=== PATIENT | female | born 1985 | race African-American/Black ===

== ENCOUNTER 2017-02-07 09:31 | Emergency (ER) | payer OTHER ==
[2017-02-07] MEDS ORDERED: DEXAMETHASONE 10 MG/ML VIAL PO STA (10:32)
--- NOTE | 2017-02-07 10:35 | ED Physician Documentation ---
PD HPI UPPER EXT INJURY - Stated complaint Stated Complaint: R ARM PX/NUMB - Chief complaint Chief Complaint: Ext Problem - History obtained from History obtained from: Patient, Family - History of Present Illness Location: Right, Elbow Type of injury: Other (jerking of the arms at [place]) Where injury occurred: [place] Timing - onset: How many days ago (2) Timing - duration: Days (2) Timing - details: Gradual onset, Still present Improved by: Rest, Immobilization Worsened by: Moving, Palpating Associated symptoms: Numbness. No: Weakness Contributing factors: No: Anticoagulated Similar symptoms before: Has not had sx before Recently seen: Not recently seen - Additonal information Additional information: 29-year-old female was at [employer] on evening when she was riding a tube that had a lot of bouncing around and she thinks she may have strained her elbow on this ride. She did not have immediate pain. Later that day she had some pain on the way home and when she woke the next morning she was not able to use her right arm. She is having a lot of problem with pain in the elbow and numbness on the fourth and fifth digits she has pain to flexion extension and supination pronation. Review of Systems Constitutional: denies: Fever Eyes: denies: Decreased vision Ears: denies: Ear pain Nose: denies: Congestion Respiratory: denies: Cough GI: denies: Abdominal Pain, Nausea, Vomiting : denies: Dysuria Skin: denies: Rash Musculoskeletal: reports: Extremity pain, Joint pain, Joint swelling. denies: Neck pain, Back pain Neurologic: reports: Numbness. denies: Generalized weakness, Focal weakness PD PAST MEDICAL HISTORY - Past Medical History Past Medical History: Yes Cardiovascular: Murmur, Other Endocrine/Autoimmune: Other Musculoskeletal: Fibromyalgia, Rheumatoid arthritis, Other - Past Surgical History Past Surgical History: Yes General: Other Ortho: Other - Present Medications Home Medications: Ambulatory Orders Medication Instructions Recorded Confirmed Nitrofurantoin Monohyd/M-Cryst 100 mg PO BID 5 Days capsule 11/03/15 [Macrobid 100 mg Capsule] - Allergies Allergies/Adverse Reactions: Allergies Allergy/AdvReac Type Severity Reaction Status Date / Time adalimumab [From Humira] Allergy Edema Verified 02/07/17 09:47 - Social History Does the pt smoke?: No Smoking Status: Never smoker Does the pt drink ETOH?: Yes Does the pt have substance abuse?: No - Immunizations Immunizations are current?: Yes - POLST Patient has POLST: No PD ED PE NORMAL - Vitals Vital signs reviewed: Yes (hypertensive) - General General: Alert and oriented X 3, No acute distress, Well developed/nourished - HEENT HEENT: Atraumatic, PERRL - Neck Neck: Supple, no meningeal sign - Respiratory Respiratory: No respiratory distress - Derm Derm: Normal color, Warm and dry, No rash - Extremities Extremities: No deformity, Other (There is specific point tenderness over the right radial head. There is tendeness to the entire elbow and pain with flexion/ extension sup/pronation) - Neuro Neuro: No motor deficit, No sensory deficit Eye Opening: Spontaneous Motor: Obeys Commands Verbal: Oriented GCS Score: 15 - Psych Psych: Normal mood, Normal affect Results - Vitals Vitals: Vital Signs - 24 hr 02/07/17 09:41 Temperature 36.5 C Heart Rate 76 Respiratory 18 Rate Blood Pressure 155/101 H O2 Saturation 100 Oxygen O2 Source Room air - Rads (name of study) right elbow Radiology: Prelim report reviewed (Impression: Normal elbow radiography.), EMP read indepedently, See rad report Procedures - Splint (location) right elbow Splint applied by: Tech Type of splint: Fiberglass, Posterior Other: Patient tolerated well, No complications, Neurovascular intact, Good alignment, Sling provided PD MEDICAL DECISION MAKING - ED course Complexity details: reviewed results, re-evaluated patient, considered differential, d/w patient, d/w family ED course: Patient with some pain in the right elbow after the jostling forces 2 days ago has enough pain that she is placed into a posterior splint and given a dose of dexamethasone. There is no evidence of fracture on x-ray examination. Departure - Departure Disposition: 01 Home, Self Care Clinical Impression: Sprain of right elbow Qualifiers: Encounter type: initial encounter Qualified Code(s): S53.401A - Unspecified sprain of right elbow, initial encounter Condition: Stable Instructions: ED Sprain Elbow Follow-Up: [facility] [Provider Group]
[2017-02-07] MEDS ORDERED: DEXAMETHASONE 10 MG/ML VIAL ONE (10:51)
--- NOTE | 2017-02-07 11:01 | XRAY Preliminary Report ---
Exam: XR ELBOW 3 VIEW RT IMPRESSION: Normal elbow radiography. [facility] SITE ID: [id number]
--- NOTE | 2017-02-07 11:03 | XRAY Report ---
EXAM: RIGHT ELBOW RADIOGRAPHY EXAM DATE: 02/07/2017 10:50 AM. CLINICAL HISTORY: Pain with movement. COMPARISON: None. TECHNIQUE: 3 views. FINDINGS: Bones: Normal. No fractures or bone lesions. Joints: Normal. No effusion. No subluxation. Soft Tissues: Normal. No soft tissue swelling. IMPRESSION: Normal elbow radiography. [facility] Referring Provider Line: [phone] SITE ID: [id number]
[2017-02-07 11:42] VITALS: BP 148/98
== END 2017-02-07 11:42 | disposition home or self-care (01) ==
LOC: ED 09:31
DX: S53.401A Unspecified sprain of right elbow, initial encounter (principal); X50.1XXA Overexertion from prolonged static or awkward postures, initial encounter; Y93.16 Activity, rowing, canoeing, kayaking, rafting and tubing; Y92.89 Other specified places as the place of occurrence of the external cause
CPT/HCPCS: 29105; 99283